=== PATIENT | male | born 1970 | race Caucasian/White ===

== ENCOUNTER 2017-06-04 12:55 | Emergency (ER) | payer SELFPAY ==
--- NOTE | 2017-06-04 13:45 | PHYS DOC ---
Past Medical History Past Medical History: No Pertinent History Past Surgical History: Other Additional Past Surgical Histo: neck and lower back surgeries Alcohol Use: Rarely Drug Use: Marijuana Adult General Chief Complaint Chief Complaint: ELBOW PROBLEM [facility] HPI Patient is a 46 year old male presents to emergency department stating on May 17 he fell on his trailer and landed on his right elbow. He states that he didn't really think too much about it however has become increasingly sore. Patient states that the elbow has swelling with redness and is a very warm and tender. He denies any change in range of motion. It does appear that he had an abrasion on the elbow as well. He states his last tetanus immunization was approximately 3-4 years ago. He denies any fever, chills or any nausea vomiting. Patient is right-hand dominant. Review of Systems Review of Systems Constitutional: Denies fever or chills [] Eyes: Denies change in visual acuity, redness, or eye pain [] HENT: Denies nasal congestion or sore throat [] Respiratory: Denies cough or shortness of breath [] Cardiovascular: No additional information not addressed in HPI [] GI: Denies abdominal pain, nausea, vomiting, bloody stools or diarrhea [] : Denies dysuria or hematuria [] Musculoskeletal: Denies back pain. Complaint of right elbow pain and discomfort. Integument: Denies rash or skin lesions [] Neurologic: Denies headache, focal weakness or sensory changes [] Endocrine: Denies polyuria or polydipsia [] Current Medications Current Medications Current Medications Medications (Trade) Dose Ordered Sig/Demian Start Time Stop Time Status Last Admin Dose Admin Acetaminophen/ Hydrocodone Bitart (Lortab 5/325) 2 tab 1X ONCE 06/04/17 16:00 06/04/17 16:02 DC 06/04/17 16:17 2 TAB Cefazolin Sodium (Ancef 1gm Ivpb For Omni) 1 gm 1X ONCE 06/04/17 17:15 06/04/17 17:16 DC Lidocaine/Sodium Bicarbonate (Buffered Lidocaine 1%) 20 ml 1X ONCE 06/04/17 16:00 06/04/17 16:02 DC 06/04/17 16:18 20 ML Allergies Allergies Allergies Coded Allergies Type Severity Reaction Last Updated Verified No Known Drug Allergies 06/04/17 No Physical Exam Physical Exam Constitutional: Well developed, well nourished, no acute distress, non-toxic appearance. [] HENT: Normocephalic, atraumatic, bilateral external ears normal, oropharynx moist, no oral exudates, nose normal. [] Eyes: PERRLA, EOMI, conjunctiva normal, no discharge. [] Neck: Normal range of motion, no tenderness, supple, no stridor. [] Cardiovascular:Heart rate regular rhythm Lungs & Thorax: No respiratory distress noted Skin: Warm, dry, no erythema, no rash. [] Back: No tenderness Extremities: Right elbow tenderness, patient was noted to have swelling and tenderness on the elbow area. Area appears to be warm with an abrasion that is healed. Patient was noted to have full range of motion, peripheral pulse 2+, cap refill brisk less than 2 seconds. Patient with equal strength noted bilaterally. No cyanosis, no clubbing, ROM intact, no edema. [] Neurologic: Alert and oriented X 3, normal motor function, normal sensory function, no focal deficits noted. [] Psychologic: Affect normal, judgement normal, mood normal. [] Current Patient Data Vital Signs Vital Signs Date Time Temp Pulse Resp B/P (MAP) Pulse Ox O2 Delivery O2 Flow Rate FiO2 06/04/17 16:17 18 98 Room Air 06/04/17 14:40 61 128/66 (86) 06/04/17 13:15 98.2 98.2 Lab Values Laboratory Tests Test 06/04/17 14:15 White Blood Count 14.3 x10^3/uL (4.0-11.0) H Red Blood Count 4.86 x10^6/uL (4.30-5.70) Hemoglobin 13.7 g/dL (13.0-17.5) Hematocrit 41.5 % (39.0-53.0) Mean Corpuscular Volume 85 fL (79-100) Mean Corpuscular Hemoglobin 28 pg (25-35) Mean Corpuscular Hemoglobin Concent 33 g/dL (31-37) Red Cell Distribution Width 13.5 % (11.5-14.5) Platelet Count 298 x10^3/uL (140-400) Neutrophils (%) (Auto) 69 % (31-73) Lymphocytes (%) (Auto) 24 % (24-48) Monocytes (%) (Auto) 5 % (0-9) Eosinophils (%) (Auto) 0 % (0-3) Basophils (%) (Auto) 1 % (0-3) Neutrophils # (Auto) 9.9 x10^3uL (1.8-7.7) H Lymphocytes # (Auto) 3.5 x10^3/uL (1.0-4.8) Monocytes # (Auto) 0.7 x10^3/uL (0.0-1.1) Eosinophils # (Auto) 0.1 x10^3/uL (0.0-0.7) Basophils # (Auto) 0.1 x10^3/uL (0.0-0.2) Erythrocyte Sedimentation Rate 12 (0-15) Sodium Level 136 mmol/L (136-145) Potassium Level 3.6 mmol/L (3.5-5.1) Chloride Level 99 mmol/L (98-107) Carbon Dioxide Level 30 mmol/L (21-32) Anion Gap 7 (6-14) Blood Urea Nitrogen 11 mg/dL (8-26) Creatinine 0.8 mg/dL (0.7-1.3) Estimated GFR (Cockcroft-Gault) 104.1 BUN/Creatinine Ratio 14 (6-20) Glucose Level 94 mg/dL (70-99) Calcium Level 8.8 mg/dL (8.5-10.1) Total Bilirubin 0.4 mg/dL (0.2-1.0) Aspartate Amino Transferase (AST) 14 U/L (15-37) L Alanine Aminotransferase (ALT) 33 U/L (16-63) Alkaline Phosphatase 84 U/L (46-116) C-Reactive Protein, Quantitative 37.6 mg/L (0-3.3) H Total Protein 8.0 g/dL (6.4-8.2) Albumin 3.6 g/dL (3.4-5.0) Albumin/Globulin Ratio 0.8 (1.0-1.7) L Laboratory Tests 06/04/17 14:15 Laboratory Tests 06/04/17 14:15 EKG EKG [] Radiology/Procedures Radiology/Procedures [][facility] [address] [place] [address] IMAGING REPORT Signed PATIENT: PAOLA CANDELARIO Darvin ACCOUNT: [id number] : 1970 LOCATION: ER AGE: 46 SEX: M EXAM STATUS: REG ER ORD. PHYSICIAN: PIERCE RAZO APRN REASON: pain and discomfort PROCEDURE: ELBOW RIGHT 3V Right elbow radiograph 3 views 06/04/2017 Clinical indication: Right elbow pain and swelling status post fall. Comparison: None. Findings: No acute fracture or traumatic malalignment. Joint spaces maintained. No significant elbow joint effusion. There is moderate soft tissue swelling the posterior aspect of the elbow. Impression: Soft tissue swelling most prominent at the posterior aspect of the elbow with no acute osseous abnormality. DICTATED and SIGNED BY: LAURA TURNER MD DATE: 06/04/171427 CC: PIERCE RAZO APRN; NO PCP ~ Course & Med Decision Making Course & Med Decision Making Pertinent Labs and Imaging studies reviewed. (See chart for details) Patient with an elevated white count, elevated CRP. Spoke with Dr. Manjarrez to perform a joint aspiration due to septic joint. Lidocaine was provided patient was provided with hydrocodone for pain and discomfort. Care transferred to Dr Manjarrez I tapped his bursa area on his right elbow and it is bloody, cultures were obtained and sent off. I do not believe he has a septic joint is he can range it fully and has pronation supination without pain. I believe he likely has septic olecranon bursitis. He received 1 g of Ancef, he does not have a fever or other concerning symptoms at this point. We will discharge with dicloxacillin 500 mg every 6 for 21 days and follow-up with Dr. Mlaik within the next week. He is instructed to return ER for worsening pain, fevers, swelling, redness, or other concerns. Dragon Disclaimer Dragon Disclaimer This electronic medical record was generated, in whole or in part, using a voice recognition dictation system. Departure Departure Impression: Primary Impression: Olecranon bursitis Disposition: HOME, SELF-CARE Condition: STABLE Referrals: NON,STAFF (PCP) VERO GA MD Patient Instructions: Olecranon Bursitis Additional Instructions: You likely have an infection of your right elbow and you will need to have antibiotics for the next 21 days. You will need to follow-up with . Please call his office and schedule follow-up appointment within the next week. If you develop high fevers, worsening pain swelling, redness, red streaks around her elbow going up the back of your arm or you have any other concerning symptoms please return back to emergency department immediately. Scripts Dicloxacillin Sodium (DICLOXACILLIN SODIUM) 500 Mg Capsule 1 CAP PO QID, #84 CAP Prov: GABRIELLE MANJARREZ MD 06/04/17 Arthrocentesis Indication: Elbow swelling Consent: Consent given by patient. Procedure: The right elbow was positioned appropriately and the landmarks were identified. Local anesthesia was offered lidocaine. The area was then prepped and draped in the usual sterile fashion. A needle was then introduced into the bursa area, 10 mL of bloody fluid was aspirated. A sterile dressing was then applied to the site. The patient tolerated the procedure well. Complications: none. Problem Qualifiers Primary Impression: Olecranon bursitis Laterality: right Qualified Codes: M70.21 - Olecranon bursitis, right elbow PIERCE RAZO APRN Jun 04, 2017 13:45 GABRIELLE MANJARREZ MD Jun 04, 2017 17:15
[2017-06-04 14:27] LABS: BASO # 0.1 x10^3/uL (0.0-0.2); BASO % 1 % (0-3); EOS % 0 % (0-3); HEMATOCRIT 41.5 % (39.0-53.0); HEMOGLOBIN 13.7 g/dL (13.0-17.5); LYMPH # 3.5 x10^3/uL (1.0-4.8); LYMPH % 24 % (24-48); MEAN CORPUSCULAR HEMOGLOBIN 28 pg (25-35); MEAN CORPUSCULAR HGB CONC 33 g/dL (31-37); MEAN CORPUSCULAR VOLUME 85 fL (79-100); MONO % 5 % (0-9); NEUT % 69 % (31-73); PLATELET COUNT 298 x10^3/uL (140-400); RED BLOOD COUNT 4.86 x10^6/uL (4.30-5.70); RED CELL DISTRIBUTION WIDTH 13.5 % (11.5-14.5); WHITE BLOOD COUNT 14.3 x10^3/uL (4.0-11.0)
--- NOTE | 2017-06-04 14:32 | RAD ---
Right elbow radiograph 3 views 06/04/2017 Clinical indication: Right elbow pain and swelling status post fall. Comparison: None. Findings: No acute fracture or traumatic malalignment. Joint spaces maintained. No significant elbow joint effusion. There is moderate soft tissue swelling the posterior aspect of the elbow. Impression: Soft tissue swelling most prominent at the posterior aspect of the elbow with no acute osseous abnormality.
[2017-06-04 14:42] LABS: CALCIUM 8.8 mg/dL (8.5-10.1); CREATININE 0.8 mg/dL (0.7-1.3); GFR 104.1; POTASSIUM 3.6 mmol/L (3.5-5.1)
[2017-06-04 14:47] LABS: ALBUMIN 3.6 g/dL (3.4-5.0); ALBUMIN/GLOBULIN RATIO 0.8 (1.0-1.7); C-REACTIVE PROTEIN 37.6 mg/L (0-3.3); TOTAL BILIRUBIN 0.4 mg/dL (0.2-1.0)
[2017-06-04] MEDS ORDERED: LIDOCAINE 1% / SOD BICARB 8.4% 20 ML VIAL. IJ ONE (16:00)
[2017-06-04] MEDS ORDERED: HYDROcodone/APAP 5/325MG 1 TAB TABLET PO ONE (16:00)
[2017-06-04 17:11] VITALS: BP 114/57
[2017-06-04] MEDS ORDERED: ceFAZolin 1GM IVPB FOR OMNI 1 GM/50 ML BAG IV ONE (17:15)
[2017-06-04] MEDS ORDERED: DICL500C PO (17:39)
== END 2017-06-04 18:00 | disposition home or self-care (01) ==
LOC: ER 12:55
DX: M70.21 Olecranon bursitis, right elbow (principal)
CPT/HCPCS: 10021; 36415; 73080; 80053; 85025; 85651; 86140; 87040; 87071; 87075; 87205; 89060; 96374; 99285; J0690